=== PATIENT | male | born 1995 | race Caucasian/White ===

== ENCOUNTER → 2022-08-29 15:19 | Outpatient (BNVA) | payer BC, SELFPAY | PROVIDERS: Visit Provider Nurse Practitioner Psychiatric/Mental Health | DX: F14.20 Cocaine dependence, uncomplicated (principal); Z51.81 Encounter for therapeutic drug level monitoring; Z79.899 Other long term (current) drug therapy | CPT/HCPCS: 80305 ==

== ENCOUNTER → 2022-09-05 15:58 | Outpatient (BNVA) | payer BC, SELFPAY | PROVIDERS: Visit Provider Nurse Practitioner Psychiatric/Mental Health | DX: Z51.81 Encounter for therapeutic drug level monitoring (principal) ==

== ENCOUNTER → 2022-09-19 16:02 | Outpatient (BNVA) | payer BC, SELFPAY | PROVIDERS: Visit Provider Nurse Practitioner Psychiatric/Mental Health | DX: Z51.81 Encounter for therapeutic drug level monitoring (principal); F14.20 Cocaine dependence, uncomplicated ==

== ENCOUNTER → 2022-10-03 15:12 | Outpatient (BNVA) | payer BC, SELFPAY | PROVIDERS: Visit Provider Nurse Practitioner Psychiatric/Mental Health | DX: Z51.81 Encounter for therapeutic drug level monitoring (principal); F14.20 Cocaine dependence, uncomplicated | CPT/HCPCS: 80305 ==

== ENCOUNTER 2025-06-28 13:34 | Outpatient (AMB) | payer BC, SELFPAY ==
--- NOTE | 2025-06-28 13:42 | A.OFFPC_ITS ---
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: No Accompanied by: Self / Same As Patient Allergies amoxicillin Allergy (Unknown, Verified 06/28/25 14:29) Hives Penicillins Allergy (Verified 06/28/25 14:29) Hives Medication List - Last Reconciled 06/28/25 by ZOFIA Alvarado No Known Home Meds Tobacco use date assessed: 06/28/25 Dental Screening Dental Screen Date: 06/28/25 Did you have a dental visit in the last 12 months?: No Did you have a dental problem in the last 6 months where you did not have access to dental care?: No Was dental information given to patient?: Patient has dentist HPI LEATHER HEEL BREASTER, requesting PE HPI Details History of Present Illness The patient is a 29 year old individual presenting for a physical exam. The patient has not been seen by a physician since leaving pediatrics. The patient denies any history of drug use. Health Maintenance - The patient presents for a physical ex am as a new patient. - Fasting labs are planned for the near future. Social History - Substance Use: The patient reports no drug use. - Hobbies: The patient's hobbies include snowboarding and being outside. Review of Systems - Cardiovascular: Denies chest pain. - Respiratory: Denies shortness of breat h. - Gastrointestinal: Denies abdominal tyson n, blood in stool, constipation, or diarrhea. -denies any urinary issues - Psychiatric: Denies suicidal or homici jason ideation. Physical Exam General: Cooperative, healthy appearing, comfortable, no acute distress and well developed Orientation: Patient oriented x3 Limitations: No limitations Head: Normal to inspection Ears: Hearing grossly normal bilaterally Nose: Normal external nose present Face and sinus: Normal facial exam Eyes: Appearance normal, both eyes and all related structures Neck: Normal visual inspection and Yes full ROM Respiratory: Normal respiratory effort and able to speak in complete sentences. Clear to auscultation bilaterally Cardiovascular: Regular rate and rhythm. Normal S1 and S2 GI: Normal to inspection. Soft to palpation and nontender : Testicles without masses/lesions and no hernias appreciated Skin: No rashes or lesions noted Neuro: Patient oriented x3 Extremities: Normal to inspection Results Plan 1. Encounter For General Adult Medical E xamination The patient will undergo fasting labs in the near future as part of the routine physical examination. Discussion Notes I informed the patient that the physical examination was benign. I advised the patient to obtain fasting labs in the near future to complete the health assessment. Patient Instructions - Please get fasting blood tests done in the near future. [facility] Social History Patient Tobacco Use Status: Current everyday Tobacco user Questionnaire PHQ-9 Over the last 2 weeks, how often have you been bothered by any of the following problems? 1. Little interest or pleasure in doing things: not at all 2. Feeling down, depressed, or hopeless: not at all 3. Trouble falling or staying asleep, or sleeping too much: not at all 4. Feeling tired or having little energy: not at all 5. Poor appetite or overeating: not at all 6. Feeling bad about yourself - or that you are a failure or have let yourself or your family down: not at all 7. Trouble concentrating on things, such as reading the newspaper or watching television: not at all 8. Moving or speaking so slowly that other people could have noticed. Or the opposite - being so fidgety or restless that you have been moving around a lot more than usual: not at all 9. Thoughts that you would be better off or of hurting yourself in some way: not at all Total score: 0 Depression Screening Interpretation: Negative Depression Screening Done: Yes 49276 - PHQ-9 Billing: Yes Source: Developed by Drs. Alvin Page, Jamilah Camargo, Viktor Tapia and colleagues, with an educational nani from [employer]. Thrive Questionnaire Date Thrive assessed: 06/21/25 I am a: Patient What is your living situation today?: I have a steady place to live Within the past 12 months, did the food you bought not last and you didn't have the money to get more?: Never true Within the past 12 months, did you worry whether your food would run out before you got money to buy more?: Never true Do you have trouble paying for medicines?: No Do you have trouble getting transportation to medical appointments?: No Do you have trouble paying your heating and electricity bill?: No Do you have trouble taking care of your child, family member or friend?: No Do you have trouble with day-to-day activities such as bathing, preparing meals, shopping, managing finances, etc.?: No Are you currently unemployed and looking for a job?: No Are you interested in more education?: No Please select the resources that you would like help with: None Currently or been in a relationship where the following occur: No concerns repor isiah THRIVE Score: 0 AUDIT C Alcohol Use Questionnaire (AUDIT-C) 1. How often do you have a drink containing alcohol?: Monthly or less 2. How many drinks containing alcohol do you have on a typical day when you are drinking?: 1 or 2 3. How often do you have six or more drinks on one occasion?: Less than monthly Total Score: 2 SHELDON-7 AMB Questionnaire SHELDON-7 Feeling nervous, anxious, or on edge: 0 = Not at all Not being able to stop or control worryin = Not at all Worrying too much about different things: 0 = Not at all Trouble relaxin = Not at all Being so restless that it is hard to sit still: 0 = Not at all Becoming easily annoyed or irritable: 0 = Not at all Feeling afraid as if something awful might happen: 0 = Not at all Total SHELDON-7 score (0-4 normal; 5-9 mild; 10-14 moderate; 15-21 severe): 0 Source: Developed by Drs. Alvin Page, Jamilah Camargo, Viktor Tapia and colleagues, with an educational nani from [employer]. Physical exam (Primary Care) Vital Signs: Last Vital Signs Pulse 84 06/28/25 13:59 BP 122/84 06/28/25 13:59 Pulse Ox 99 06/28/25 13:59 Oxygen Delivery Method Room Air 06/28/25 13:59 Tobacco/Smoking Status: Tobacco use Status Tobacco use date assessed 06/28/25 06/28/25 13:45 Patient Tobacco Use Status Current everyday Tobacco 06/28/25 14:01 PHQ-9: PHQ-9 Score PHQ-9: Total score 0 06/28/25 14:01 Depression Screening Interpretation: Negative Thrive Assessment: Date of Thrive Assessment Date Thrive assessed 06/21/25 06/28/25 13:45 Currently or been in a relationship where the following occur: No concerns reported Coding Level of Care Code New Pt Prev Care 18-39yr(72159 Diagnoses Physical exam Z00.00 Additional Codes PHQ-9 - 67225 - PHQ-9 Billing: Yes ([id number]) Assessment & Plan Assessment & Plan (1) Physical exam: Code(s): Z00.00 - Encounter for general adult medical examination without abnormal findings Category: Medical Plan . Orders: Orders Complete Blood Count Auto Diff Today Z00.00 - Encounter for general adult medical examination without abnormal findings UA CC w/rflx Micro + Cult Today Z00.00 - Encounter for general adult medical examination without abnormal findings Lipid Panel Today Z00.00 - Encounter for general adult medical examination without abnormal findings Comprehensive [place]. Panel Fast Today Z00.00 - Encounter for general adult medical examination without abnormal findings TSH reflex Free T4 Today Z00.00 - Encounter for general adult medical examination without abnormal findings
[2025-06-28 13:59] VITALS: BP 122/84; PULSE 84; O2SAT 99
--- OUTSIDE RECORDS SUMMARY | 2025-06-28 16:41 | XMS_ITS | Encounter Summary ---
Author Organization [facility] Address [address] [place], [place] [id number] Phone Care Team Providers Care Shingle Packer Name Role Phone Romina Pena MD Primary Care Provider Unava ilable Encounter Details Date Type Department Care Team (Late st Contact Info) Description 03/19/2017 Conversion Encounter [facility] - [address] [address] Social History Tobacco Use Types Packs/Day Years Used Date Smoking Tobacco: Never Comments:Never smoker Sex and Gender Information Value Date Recorded Sex Assigned at Not on file Legal Sex Male 4:59 PM EDT Gender Identity Not on file Sexual Orientation Not on file documented as of this encounter Plan of Treatment Not on file documented as of this encounter Visit Diagnoses Not on filedocumented in this encounter Care Teams Shingle Packer Relationship Specialty Start Date End Date Romina Pena MD PCP - General 03/13/17 documented as of this encounter
--- OUTSIDE RECORDS SUMMARY | 2025-06-28 16:41 | XMS_ITS | Clinical Summary ---
Author Organization [facility] Address [address] [place] [address] Phone Care Team Providers Care Cloth Laminating Supervisor Name Role Phone Romina Pena MD Primary Care Provider Unava ilable Allergies No known active allergies Medications No known medications Active Problems No known active problems Immunizations Immunization Administration Dates Next Due DTP 10/08/1998, 8,03/29/1997,01/18 DTaP 5 03/18/2002 H1N1 05/28/2009 HPV Vaccine 9 Valent 04/18/2015 HPV, Quadrivalent 12/06/2014,03/31/2014 Hep A, ped/adol 12/06/2014,03/31/2014 Hep B, ped/adol 09/13/1997,01/18/1997,1996 Hib (PRP-T) 10/08/1998, 8,03/29/1997,01/18 IPV 03/18/2002 Influenza Split 07/10/2010 Influenza, injectable, quadr ivalent, preservative free 04/21/2016 MMR 01/27/2001,11/27/1997 Meningococcal Conj (Menactra) MCV4P 03/31/2014,1 09/10/2009 OPV 09/13/1997,03/29/1997,01/18/1997 Tdap 05/28/2009 Varicella 07/10/2010,01/01/2000 Family History Relation Name Status Comments Father Alive Father: Alive a nd well Mother Alive Mother: Alive a nd well Other Family history of Strabismus/amblyopia, No family history of Thrombophilia, No family history of Deafness, No family history of Obesity, No family history of Cancer, Family history of Asthma, No family history of Dental caries, No family history of Sudden /TN under age 55, No family history of Developmental dislocation of hip, Family history of Diabetes mellitus, No family history of Migraines, No family history of CVA (Stroke), No family history of Heart disease, No family history of Seizure disorder, No family history of ADD/ADHD Sister Alive Sister: sauravi c to [facility]ox. Social History Tobacco Use Types Packs/Day Years Used Date Smoking Tobacco: Never Smokeless Tobacco: Never Comments:Never smoker Alcohol Use Standard Drinks/Week Comments No 0 (1 standard drink = 0.6 oz pur e alcohol) Sex and Gender Information Value Date Recorded Sex Assigned at Not on file Legal Sex Male 4:59 PM EDT Gender Identity Not on file Sexual Orientation Not on file Last Filed Vital Signs Vital Sign Reading Time Taken Comments Blood Pressure 109/56 04/23/2017 2:55 PM EDT Pulse 76 04/23/2017 2:55 PM EDT Temperature 35.8 C (96.5 F) 12/22/2016 12:00 AM EDT Respiratory Rate - - Oxygen Saturation - - Inhaled Oxygen Concentration - - Weight 66.2 kg (146 lb) 04/23/2017 2:55 PM EDT Height 180.3 cm (5' 11 ) 04/23/2017 2:55 PM EDT Body Mass Index 20.36 04/23/2017 2:55 PM EDT Plan of Treatment Health Maintenance Due Date Last Done Comments DTaP,Tdap,and Td Vaccines (7 - Td or Tdap) 05/28/2019 05/28/2009, 03/18/2002, 10/08/1998, Additional history exists Influenza Vaccines (#1) 2025 04/21/2016, 07/10 COVID-19 Vaccine ( season) 2025 Hepatitis B Vaccines Completed 09/13/1997, 01/18/1997, 1996 HIB Vaccines Completed 10/08/1998, 09/03, 03/29/1997, Additional history exists MMR Vaccines Completed 01/27/2001, 11/27/1997 IPV Vaccines Completed 03/18/2002, 09/03, 03/29/1997, Additional history exists Varicella Vaccines Completed 07/10/2010, 01/01/2000 Meningococcal Vaccine Completed 03/31/2014, 010 Hepatitis A Vaccines Completed 12/06/2014, 03/31/20 14 HPV Vaccines Completed 04/18/2015, 05/0 01/2015, 03/31/2014 Men B Vaccine Aged Out No longer elig ible based on patient's age to complete this topic Pneumococcal Vaccine Aged Out No long er eligible based on patient's age to complete this topic [facility] Care Teams Cloth Laminating Supervisor Relationship Specialty Start Date End Date Romina Pena MD PCP - General 03/13/17
--- OUTSIDE RECORDS SUMMARY | 2025-06-28 16:41 | XMS_ITS | Encounter Summary ---
Author Organization [facility] Address [address] [place] [address] Phone Care Team Providers Care Facility Engineer Name Role Phone Romina Pena MD Primary Care Provider Unava ilable Encounter Details Date Type Department Care Team (Late st Contact Info) Description 04/04/2014 Documentation [facility] [place] [facility] [place] [address] Family Medicine, Physician [facility] [place], [place] [id number] Social History Tobacco Use Types Packs/Day Years Used Date Smoking Tobacco: Never Assessed Sex and Gender Information Value Date Recorded Sex Assigned at Not on file Legal Sex Male 4:59 PM EDT Gender Identity Not on file Sexual Orientation Not on file documented as of this encounter Plan of Treatment Not on file documented as of this encounter Visit Diagnoses Not on filedocumented in this encounter Care Teams Facility Engineer Relationship Specialty Start Date End Date Romina Pena MD PCP - General 03/13/17 documented as of this encounter
== END 2025-06-28 14:57 | disposition home or self-care (01) ==
LOC: HO.HMCC 13:35
PROVIDERS: Visit Provider Nurse Practitioner Family
DX: Z00.00 Encounter for general adult medical examination without abnormal findings (principal)

== ENCOUNTER → 2025-06-28 13:34 | Outpatient (BNVA) | payer BC, SELFPAY | PROVIDERS: Visit Provider Nurse Practitioner Family | DX: Z00.00 Encounter for general adult medical examination without abnormal findings (principal) | CPT/HCPCS: 96127 ==